=== PATIENT | female | born 1980 | race Caucasian/White ===

== ENCOUNTER → 2024-06-03 14:41 | Outpatient (BNVA) | payer OTHER, SELFPAY | PROVIDERS: PCP Physician Assistant Medical; Visit Provider Advanced Practice Midwife ==

== ENCOUNTER 2025-01-13 09:12 | Outpatient (REF) | payer OTHER, SELFPAY ==
--- OUTSIDE RECORDS SUMMARY | 2025-01-13 12:12 | XMS_ITS | Clinical Summary ---
Author Organization [facility] [address] [place] [address] [place] [phone] Phone Care Team Providers Care Media Librarian Name Role Phone Jean Paul Fabian Primary Care Provider [phone] Allergies No known active allergies Medications atorvastatin (LIPITOR) 20 mg tabletIndication s:Hyperlipidemia , unspecified TAKE 1 TABLET BY MOUTH EVERY DAY 90 tablet 3 10/06/2024 Active atorvastatin (LIPITOR) 20 mg tablet Take 1 tablet (20 mg total) by mouth 1 (one) time each day. Active Wegovy 2.4 mg/0.75 mL injection pen 09/28/2024 Activ e norgestimate-eth inyl estradiol (ORTHO TRI-CYCLEN, 28, ORAL) Take 1 Tab by mouth daily. Active Active Problems Problem Noted Date Diagnosed Date Sexual dysfunction 11/26/2017 Obesity 07/11/2014 Hyperlipidemia with target LDL less than 130 Overview (10/06/2024): IMO update Pericardial effusion 09/16/2012 Overview (10/06/2024): Echo 01/2012 LEVF 60-65%, small generalized pericardial effusion unchanged from prior echos. 08/2010 normal TSH, rheum factor, JACQUE, lyme screen, Mildly elevated ESR 08/2010 at 27 Encounters Date Type Department Care Team Description 11/10/2024 1:30 PM EST Office Visit Adult Medicine [address] [place] [address] Jean Paul Fabian PA Hyperlipidemia with target LDL less than 130 (Primary Dx); Obesity, unspecified class, unspecified obesity type, unspecified whether serious comorbidity present; Pericardial effusion from Last 3 Months Immunizations Name Administration Dates Next Due Tdap Tetanus diptheria acell ular pertussis (Boostrix; Adacel) 7yo and older 03/03/2012 Surgical History Surgery Date Site/Laterality Comments TONSILLECTOMY PROCEDURE: HISTORICAL TONSILLECTOMY WISDOM TOOTH EXTRACTION PROCEDURE: HISTORICAL WISDOM TEETH EXTRACTION Medical History Medical History Date Comments Pericardial effusion 09/16/2012 DX:Pericard ial effusion Hyperlipidemia with target L DL less than 130 04/08/2013 DX:Hyperlipidemia with targe t LDL less than 130; COMMENT: IMO update Obesity 07/11/2014 DX:Obesity Sexual dysfunction 11/26/2017 DX:Sexual dys function Family History Medical History Relation Name Comments Other: healthy Father Diabetes Grandparent Lung cancer Mother smoker Heart attack Paternal Grandfather Breast cancer Sister sister negativ e for genetic syndromes Relation Name Status Comments Father Alive Grandparent Mother Alive Paternal Grandfather Sister Alive Social History Tobacco Use Types Packs/Day Years Used Date Smoking Tobacco: Former Cigarettes Q uit: 11/24/2006 Smokeless Tobacco: Never Tobacco Cessation:Counseling Given: Not Answered Alcohol Use Standard Drinks/Week Comments Yes 0 (1 standard drink = 0.6 oz pur e alcohol) Comments Unknown Sex and Gender Information Value Date Recorded Sex Assigned at Not on file Legal Sex Female 8:44 AM EST Gender Identity Not on file Sexual Orientation Not on file Obstetrics History Last Filed Vital Signs Vital Sign Reading Time Taken Comments Blood Pressure 121/80 11/10/2024 1:42 PM EST Pulse 69 11/10/2024 1:42 PM EST Temperature 36.8 ??C (98.2 ??F) 11/10/2024 1:42 PM ES T Respiratory Rate 14 11/10/2024 1:42 PM EST Oxygen Saturation - - Inhaled Oxygen Concentration - - Weight 65.8 kg (145 lb) 11/10/2024 1:42 PM EST Height 157.5 cm (5' 2 ) 11/10/2024 1:42 PM EST Body Mass Index 26.52 11/10/2024 1:42 PM EST Plan of Treatment Upcoming Encounters Date Type Department Care Team (Late st Contact Info) Description 05/03/2025 3:00 PM EDT Office Visit Adult Medicine [facility] [address] [place] [address] Jean Paul Fabian PA [address] [place] [address] Health Maintenance Due Date Last Done Comments Hepatitis B Vaccines (1 of 3 - 19+ 3-dose series) 02/12/2000 DTaP,Tdap,and Td Vaccines (2 - Td or Tdap) 03/03/2022 03/03/2012 Social Influencers of Health Screening 11/02/2022 COVID-19 Vaccine (2 - 2023-2 5 season) 2024 03/30/2021 Influenza Vaccine (#1) 2024 Cervical Cancer Screening: P ap Smear 05/16/2025 05/16/2022 Depression Screening 11/09/2025 11/09/2024 Breast Cancer Screening 11/01/2026 11/01/2024 Cholesterol Screening (Lipid Panel) 11/08/2029 11/08/2024, 03/23/2024, 03/23/2024 HIV Screening Completed 11/08/2024 Hepatitis C Screening Completed 11/08/2024 HIB Vaccines Aged Out No longer eligi ble based on patient's age to complete this topic HPV Vaccines Aged Out No longer eligi ble based on patient's age to complete this topic Hepatitis A Vaccines Aged Out No long er eligible based on patient's age to complete this topic IPV Vaccines Aged Out No longer eligi ble based on patient's age to complete this topic MMR Vaccines Aged Out No longer eligi ble based on patient's age to complete this topic Meningococcal ACWY Vaccine Aged Out N o longer eligible based on patient's age to complete this topic Meningococcal B Vacine Aged Out No lo nger eligible based on patient's age to complete this topic Pneumococcal Vaccine: Pediatrics (0 to 5 Years) and At-Risk Patients (6 to 64 Years) Aged Out No longer eligible b ased on patient's age to complete this topic RSV Immunization Patients Under 20 months Aged Out No longer eligible b ased on patient's age to complete this topic Varicella Vaccines Aged Out No longer eligible based on patient's age to complete this topic Procedures Procedure Name Priority Date/Time Associated Diagnosis Comments COMPREHENSIVE METABOLIC PANEL Routine 11/08/2024 11:30 AM EST Hyperlipidemia with target LDL less than 130 Obesity, unspecified class, unspecified obesity type, unspecified whether serious comorbidity present HEPATITIS C ANTIBODY Routine 11/08/2024 11:30 AM EST Hyperlipidemia with target LDL less than 130 Obesity, unspecified class, unspecified obesity type, unspecified whether serious comorbidity present HIV 1, 2 ANTIBODY, P24 ANTIGEN WITH REFLEX TO DIFFERENTIATION Routine 11/08/2024 11:30 AM EST Hyperlipidemia with target LDL less than 130 Obesity, unspecified class, unspecified obesity type, unspecified whether serious comorbidity present LIPID PANEL WITH REFLEX TO DIRECT LDL Routine 11/08/2024 11:30 AM EST Hyperlipidemia with target LDL less than 130 Obesity, unspecified class, unspecified obesity type, unspecified whether serious comorbidity present HM PAP SMEAR Routine 05/16/2022 from Last 3 Months or Most Recently Relevant to Health Maintenance Results * Hepatitis C antibody (11/08/2024 11:30 AM EST) [facility] Hepatitis C Antibody Negative Negative LAB CHEMISTRY METHOD 11/08/2024 8:01 PM EST [facility] Blood Venous blood specimen / Unknown Venipuncture / Unknown 11/08/2024 11:30 AM EST 11/08/2024 11:30 AM EST us Jean Paul LAIRD LAB BLOOD ORDERABLES Rox hazel Result [facility] [address] [place] [address], * HIV 1,2 antibody, p24 antigen with reflex to differentiation (11/08/2024 11:30 AM EST) [facility] HIV Combo AB/AG Negative Negative LAB CHEMISTRY METHOD 11/08/2024 8:02 PM [facility] Blood Venous blood specimen / Unknown Venipuncture / Unknown 11/08/2024 11:30 AM EST 11/08/2024 11:30 AM EST [facility] - 11/08/2024 8:02 PM EST This assay is a 4th generation assay allowing for earlier detection of HIV infection by detecting the presence of the HIV-1 p24 antigen as well as the traditional antibodies to HIV type 1 (including group O) and type 2. ??Use of a 4th generation assay is the current CDC recommendation for HIV screening. Jean Paul LAIRD LAB BLOOD ORDERABLES Rox hazel Result [facility] [address] [place] [address], * Lipid panel with reflex to direct LDL (11/08/2024 11:30 AM EST) [facility] Cholesterol 174 0 - 200 mg/dL LAB CHEMISTRY METHOD 11/08/2024 7:27 PM [facility] Triglycerides 84 0 - 150 mg/dL LAB CHEMISTRY METHOD 11/08/2024 7:27 PM [facility] HDL 57 >=40 mg/dL LAB CHEMISTRY METHOD 11/08/2024 7:27 PM [facility] LDL Calculated 100 0 - 100 mg/dL LAB CHEMISTRY METHOD 11/08/2024 7:27 PM [facility] VLDL Cholesterol Ravindra 16.8 mg/dL LAB CHEMISTRY METHOD 11/08/2024 7:27 PM [facility] Non HDL Chol. (LDL+VLDL) 117 <145 mg/dL LAB CHEMISTRY METHOD 11/08/2024 7:27 PM [facility] Chol/HDL Ratio 3.1 0.0 - 4.4 LAB CHEMISTRY METHOD 11/08/2024 7:27 PM [facility] Blood Venous blood specimen / Unknown Venipuncture / Unknown 11/08/2024 11:30 AM EST 11/08/2024 11:30 AM EST us Jean Paul LAIRD LAB BLOOD ORDERABLES Rox l Result [facility] [address] [place] [address], * Comprehensive metabolic panel (11/08/2024 11:30 AM EST) Sodium 139 133 - 145 mmol/L LAB CHEMISTRY METHOD 11/08/2024 7:27 PM [facility] Potassium 4.2 3.5 - 5.5 mmol/L LAB CHEMISTRY METHOD 11/08/2024 7:27 PM [facility] Chloride 108 96 - 110 mmol/L LAB CHEMISTRY METHOD 11/08/2024 7:27 PM [facility] CO2 23 21 - 32 mmol/L LAB CHEMISTRY METHOD 11/08/2024 7:27 PM [facility] Anion Gap 8 3 - 11 LAB CHEMISTRY METHOD 11/08/2024 7:27 PM [facility] Glucose 81 70 - 100 mg/dL LAB CHEMISTRY METHOD 11/08/2024 7:27 PM [facility] BUN 10 5 - 25 mg/dL LAB CHEMISTRY METHOD 11/08/2024 7:27 PM [facility] Creatinine 0.76 0.50 - 1.10 mg/dL LAB CHEMISTRY METHOD 11/08/2024 7:27 PM [facility] eGFR 100 >=60 mL/min/1. 73m2 LAB CHEMISTRY METHOD 11/08/2024 7:27 PM [facility] Comment:Calculation based on the??Chronic Kidney Disease Epidemiology Collaboration (CKD-EPI) equation refit??without adjustment for race. BUN/Creatinine Ratio 13.2 LAB CHEMISTRY METHOD 11/08/2024 7:27 PM [facility] Calcium 9.1 8.5 - 10.5 mg/dL LAB CHEMISTRY METHOD 11/08/2024 7:27 PM [facility] AST (SGOT) 16 10 - 42 unit/L LAB CHEMISTRY METHOD 11/08/2024 7:27 PM [facility] ALT (SGPT) 22 10 - 60 unit/L LAB CHEMISTRY METHOD 11/08/2024 7:27 PM [facility] Alkaline Phosphatase 66 42 - 121 unit/L LAB CHEMISTRY METHOD 11/08/2024 7:27 PM [facility] Total Protein 7.0 6.0 - 8.0 g/dL LAB CHEMISTRY METHOD 11/08/2024 7:27 PM [facility] Albumin 3.7 3.2 - 5.0 g/dL LAB CHEMISTRY METHOD 11/08/2024 7:27 PM [facility] Total Bilirubin 0.4 0.0 - 1.4 mg/dL LAB CHEMISTRY METHOD 11/08/2024 7:27 PM [facility] Blood Venous blood specimen / Unknown Venipuncture / Unknown 11/08/2024 11:30 AM EST 11/08/2024 11:30 AM EST Jean Paul LAIRD LAB BLOOD ORDERABLES Rox l Result [facility] [address] [place] [address], [place] [phone] * Pap Smear (05/16/2022) Pap smear no interpretation , abstracted Historical Provider MD HEALTH MAINTENANCE Final Result from Last 3 Months or Most Recently Relevant to Health Maintenance Insurance [facility] Care Teams Media Librarian Relationship Specialty Start Date End Date Jean Paul Fabian PA [address] [facility] [place] [id number] PCP - General Internal Medicine 04/03/21
[2025-01-14 04:18] LABS: CT PCR NOT DETECTED (Not Detect.); NG PCR NOT DETECTED (Not Detect.)
[2025-01-14 13:24] LABS: Bacterial Vaginosis PCR NEGATIVE (Negative); Candida Group PCR NOT DETECTED (Not Detect); Candida glab krusei PCR NOT DETECTED (Not Detect); Trichomonas vaginalis PCR NOT DETECTED (Not Detect)
== END 2025-01-13 09:13 | disposition home or self-care (01) ==
LOC: HO.LAB 09:12
PROVIDERS: PCP Physician Assistant Medical; Visit Provider Advanced Practice Midwife
DX: N89.8 Other specified noninflammatory disorders of vagina (principal)
CPT/HCPCS: 81515; 87491; 87591